=== PATIENT | male | born 1970 ===

== ENCOUNTER 2020-06-09 14:10 | Emergency (ER) | payer BC ==
[2020-06-09] MEDS ORDERED: Bupivacaine 0.5% 10 ML SDV INJECT ONE (14:17)
[2020-06-09] MEDS ORDERED: Diphtheria,Pertussis(Acell),Tetanus Vaccine 0.5 ML Syringe IM ONE (14:17)
--- NOTE | 2020-06-09 15:05 | EDM.PDOC ---
ED HPI GENERAL MEDICAL PROBLEM - General Chief Complaint: Laceration Stated Complaint: Lacration Time Seen by Provider: 06/09/20 14:57 Source of Information: Reports: Patient History Limitations: Reports: No Limitations - History of Present Illness INITIAL COMMENTS - FREE TEXT/NARRATIVE: This patient is a 49 year old male that presents to the ER. Patient reports that he was cutting his deer when he accidently cut his left thumb tip. Patient denies any other injury. Onset: Today Onset Date: 06/09/20 Duration: Hour(s): (2) Front/Back Body Image: 1 - laceration Severity: Mild Improves with: Reports: None Worsens with: Reports: None Associated Symptoms: Reports: No Other Symptoms - Related Data Allergies Allergy/AdvReac Type Severity Reaction Status Date / Time No Known Allergies Allergy Verified 06/09/20 14:20 Home Meds: Home Meds . [No Known Home Meds] 06/09/20 [History] Past Medical History - Past Health History Medical/Surgical History: Denies Medical/Surgical History Social & Family History - Family History Family Medical History: No Pertinent Family History - Tobacco Use Tobacco Use Status *Q: Never Tobacco User Second Hand Smoke Exposure: No - Caffeine Use Caffeine Use: Reports: None - Recreational Drug Use Recreational Drug Use: No ED ROS GENERAL - Review of Systems Review Of Systems: See Below Constitutional: Reports: No Symptoms Respiratory: Reports: No Symptoms Cardiovascular: Reports: No Symptoms Musculoskeletal: Reports: No Symptoms Skin: Reports: Wound (left greater thumb tip) Neurological: Reports: No Symptoms ED EXAM, SKIN/RASH Exam: See Below Exam Limited By: No Limitations General Appearance: Alert, WD/WN, No Apparent Distress Peripheral Pulses: 2+: Radial (L), Radial (R) Extremities: Normal Range of Motion, Non-Tender, No Pedal Edema, Normal Capillary Refill, Other (pulses +2, cap refill < 2 sec, sensory/motor function intact. Neurovascular intact. ) Neurological: Alert, Oriented Psychiatric: Normal Affect, Normal Mood Skin: Warm, Dry, Normal Color, No Rash, Wound/Incision Location, Skin: Upper Extremity, Left (left 1st digit tip. no nail involvement) ED SKIN PROCEDURES - Laceration/Wound Repair Left Distal Digit - 1st (Thumb) Appearance: Superficial Distal NVT: Neuro & Vascular Intact, No Tendon Injury Anesthetic Type: Digital Local Anesthesia - Lidocaine (Xylocaine): 1% Plain Local Anesthesia - Bupivicaine (Marcaine): 0.5% Plain Local Anesthetic Volume: 3cc Skin Prep: Chlorhexidine (Hibiciens) Saline Irrigation (cc's): 50 Exploration/Debridement/Repair: Wound Explored, In a Bloodless Field, Explored to Base, Wound Margins Revised Closed with: Sutures Lac/Wound length In cm: 1.5 Suture Size: 5-0 # of Sutures: 3 Suture Type: Nylon, Interrupted Tetanus Status Addressed: Yes Complications: No Course - Vital Signs Last Recorded V/S: Last Vital Signs Temp 97.9 F 06/09/20 14:12 Pulse 86 06/09/20 14:12 Resp 16 06/09/20 14:12 BP 161/84 H 06/09/20 14:12 Pulse Ox 98 06/09/20 14:12 - Orders/Labs/Meds Orders: Active Orders 24 hr Category Date Time Status Vaccines to be Administered [RC] PER UNIT ROUTINE Care 06/09/20 14:18 Active Meds: Medications Discontinued Medications Generic Name Dose Route Start Last Admin Trade Name Bryant PRN Reason Stop Dose Admin Bupivacaine HCl 10 ml 06/09/20 14:17 06/09/20 14:28 Sensorcaine-Mpf 0.5% INJECT 06/09/20 14:18 10 ml ONETIME ONE Administration Diphtheria/Tetanus/Acell Pertussis 0.5 ml 06/09/20 14:17 06/09/20 14:29 Adacel IM 06/09/20 14:18 0.5 ml .ONCE ONE Administration Lidocaine HCl 5 ml 06/09/20 14:17 06/09/20 14:28 Xylocaine-Mpf 1% INJECT 06/09/20 14:18 5 ml ONETIME ONE Administration Departure - Departure Time of Disposition: 14:58 Disposition: Home, Self-Care 01 Condition: Good Clinical Impression: Laceration - Discharge Information *PRESCRIPTION DRUG MONITORING PROGRAM REVIEWED*: Not Applicable *COPY OF PRESCRIPTION DRUG MONITORING REPORT IN PATIENT ROSCOE: Not Applicable Instructions: Sutures, Ginny, or Adhesive Wound Closure, [id number], Laceration Care, Adult, [id number] Referrals: PCP,None [Primary Care Provider] - Additional Instructions: Followup with primary care provider in about 5 days for suture removal Return to the ER for worsening of condition or any emergent concerns such as redness, heat, drainage, fever, signs of infection Wash the wound gently with soap and water gently twice a day, rinse, pat dry. Keep clean Sepsis Event Note (ED) - Evaluation Sepsis Screening Result: No Definite Risk - Focused Exam Vital Signs: Vital Signs Temp Pulse Resp BP Pulse Ox 06/09/20 14:12 97.9 F 86 16 161/84 H 98 - My Orders Last 24 Hours: My Active Orders 06/09/20 14:18 Vaccines to be Administered [RC] PER UNIT ROUTINE - Assessment/Plan Last 24 Hours: My Active Orders 06/09/20 14:18 Vaccines to be Administered [RC] PER UNIT ROUTINE Plan: PLEASE SEE RN NOTE FOR PFSH
== END 2020-06-09 15:10 | disposition home or self-care (01) ==
LOC: CC.ED 14:10
DX: S61.012A Laceration without foreign body of left thumb without damage to nail, initial encounter (principal); Z23 Encounter for immunization; W26.9XXA Contact with unspecified sharp object(s), initial encounter
CPT/HCPCS: 12001; 90471; 90715; 99282-25; J2001; J3490